=== PATIENT | female | born 1960 | race African-American/Black ===

== ENCOUNTER 2025-01-23 18:13 | Emergency (ER) | payer BC, OTHER ==
[~2025-01-23] VITALS: Ht 162.6 cm; Wt 134.0 kg
[2025-01-23 18:16] VITALS: O2SAT 100
[2025-01-23] MEDS: LIDOCAINE HCL/EPINEPHRINE 1%-EPI 1:100,000 20ML VIAL INFIL ONE (20:09)
[2025-01-23] MEDS: BACITRACIN ZINC OINT UDPKT TOP ONE (20:09)
[2025-01-23] MEDS: ACETAMINOPHEN 325MG TABLET PO STA (20:09)
[2025-01-23] MEDS ORDERED: AMOX1TAB16 MT (21:20)
[2025-01-23] MEDS ORDERED: NAPR-681 MT (21:20)
[2025-01-23 21:50] VITALS: BP 130/88; PULSE 58; RESP 19; TEMP 36.6; O2SAT 99
== END 2025-01-23 21:52 | disposition home or self-care (01) ==
LOC: ER 18:13
DX: S81.851A Open bite, right lower leg, initial encounter (principal); Z79.899 Other long term (current) drug therapy; Z98.890 Other specified postprocedural states; W54.0XXA Bitten by dog, initial encounter; Y93.01 Activity, walking, marching and hiking; Y92.89 Other specified places as the place of occurrence of the external cause; Y99.8 Other external cause status
CPT/HCPCS: 99283; 73590; 12002; J2004; 12001